=== PATIENT | male | born 2000 | race Two or more races ===

== ENCOUNTER 2019-12-27 12:44 | Emergency (ER) | payer OTHER ==
[~2019-12-27] VITALS: Ht 177.8 cm; Wt 79.1 kg
[2019-12-27 12:57] VITALS: BP 139/71
[2019-12-27] MEDS ORDERED: LIDOCAINE-MPF 1%, 5ML INFIL ONE (13:00)
[2019-12-27] MEDS ORDERED: DIPH,PERTUSS(ACELL),TET VAC/PF 0.5 ML IM-VACC ONE ×2 (13:00→13:12)
[2019-12-27] MEDS ORDERED: LIDOCAINE-MPF 1%, 5ML ONE (13:12)
== END 2019-12-27 14:12 | disposition home or self-care (01) ==
LOC: ED 14:10
DX: S61.411A Laceration without foreign body of right hand, initial encounter (principal); F17.200 Nicotine dependence, unspecified, uncomplicated; W26.0XXA Contact with knife, initial encounter; Y93.89 Activity, other specified; Y92.009 Unspecified place in unspecified non-institutional (private) residence as the place of occurrence of the external cause; Y99.8 Other external cause status
CPT/HCPCS: 90471; 90715; 99283